=== PATIENT | female | born 1950 | race Caucasian/White ===

== ENCOUNTER 2018-03-06 07:43 | Day surgery (SDC) ==
[2018-03-06] MEDS: TETRACAINE 0.5% UNIT-DOSE OP PRN ×2 (09:00→09:30)
[2018-03-06] MEDS: BETADINE OPTH PREP OP PRN ×2 (09:00→09:30)
[2018-03-06] MEDS: CYCLOGYL 2% OPTH OP PRN ×3 (09:01→09:11)
[2018-03-06] MEDS ORDERED: LIDOCAINE 1% 20 ML MDV ID STA (09:17)
[2018-03-06] MEDS ORDERED: ZOFRAN 4 MG/2 ML IVP ONE (09:17)
[2018-03-06] MEDS ORDERED: BRIMONIDINE TARTRATE 0.2% OPTH SOL OP PRN (09:17)
[2018-03-06] MEDS ORDERED: LIDOCAINE 1%/PHENYLEPHRINE 1.5% BSS (SURGERY) INTRAOCULA ONE (09:17)
[2018-03-06] MEDS ORDERED: DEX-MOXI-KETOR OPTH INJ 1/0.5/0.4 MG/ML IO ONE (09:17)
[2018-03-06] MEDS ORDERED: BSS WITH EPINEPHRINE OP ONE (09:17)
[2018-03-06] MEDS ORDERED: ZOFRAN 4 MG/2 ML ONE (09:40)
[2018-03-06] MEDS ORDERED: VERSED ONE (09:40)
[2018-03-06] MEDS ORDERED: SUBLIMAZE ONE (09:40)
[2018-03-06 12:29] VITALS: TEMP 98.5
[2018-03-06 15:18] VITALS: BP 131/67
== END 2018-03-06 10:40 | disposition home or self-care (01) ==
LOC: SURG 07:43
PROVIDERS: ATTEND Ophthalmology
DX: H25.811 Combined forms of age-related cataract, right eye (principal)

== ENCOUNTER 2018-03-20 08:53 | Day surgery (SDC) ==
[2018-03-20] MEDS: BETADINE OPTH PREP OP PRN ×2 (10:10→10:58)
[2018-03-20] MEDS: TETRACAINE 0.5% UNIT-DOSE OP PRN ×2 (10:10→10:58)
[2018-03-20] MEDS: CYCLOGYL 2% OPTH OP PRN ×3 (10:11→10:21)
[2018-03-20] MEDS ORDERED: BRIMONIDINE TARTRATE 0.2% OPTH SOL OP PRN (10:22)
[2018-03-20] MEDS ORDERED: LIDOCAINE 1% 20 ML MDV ID STA (10:22)
[2018-03-20] MEDS ORDERED: ZOFRAN 4 MG/2 ML IVP ONE (10:22)
[2018-03-20] MEDS: BSS WITH EPINEPHRINE OP ONE ×2 (11:06→11:16)
[2018-03-20] MEDS: DEX-MOXI-KETOR OPTH INJ 1/0.5/0.4 MG/ML IO ONE ×2 (11:07→11:16)
[2018-03-20] MEDS: LIDOCAINE 1%/PHENYLEPHRINE 1.5% BSS (SURGERY) INTRAOCULA ONE ×2 (11:07→11:16)
[2018-03-20] MEDS ORDERED: ZOFRAN 4 MG/2 ML ONE (11:10)
[2018-03-20] MEDS ORDERED: SUBLIMAZE ONE (11:10)
[2018-03-20] MEDS ORDERED: VERSED ONE (11:10)
[2018-03-20 12:30] VITALS: TEMP 97.5
[2018-03-20 16:17] VITALS: BP 135/69
== END 2018-03-20 12:00 | disposition home or self-care (01) ==
LOC: SURG 08:53
PROVIDERS: ATTEND Ophthalmology
DX: H25.812 Combined forms of age-related cataract, left eye (principal)